=== PATIENT | female | born 1975 | race Caucasian/White ===

== ENCOUNTER 2018-10-28 20:31 | Emergency (ER) | payer SELFPAY, OTHER ==
[2018-10-28 23:54] LABS: URINE PH (Dip) POC 5.5 (5.0-8.5)
[2018-10-28 23:54] LABS: URINE BLOOD (Dip) POC Trace-intact (NEGATIVE); URINE GLUCOSE (Dip) POC Negative (NEGATIVE); URINE KETONES (Dip) POC Negative (NEGATIVE); URINE LEUKOCYTE EST (Dip) POC Negative (NEGATIVE); URINE NITRITE (Dip) POC Negative (NEGATIVE); URINE TOTAL PROTEIN POC Negative (NEGATIVE)
[2018-10-29] MEDS: LIDOCAINE/MYLANTA 40 ML BTL PO (01:10)
[2018-10-29] MEDS: PANTOPRAZOLE 40 MG INJ IV (01:10)
[2018-10-29] MEDS: SOD CHLORIDE 0.9% 1,000 ML IV (01:11)
== END 2018-10-29 03:15 | disposition home or self-care (01) ==
LOC: E/R 20:31
DX: T50.901A Poisoning by unspecified drugs, medicaments and biological substances, accidental (unintentional), initial encounter (principal); I10 Essential (primary) hypertension
CPT/HCPCS: 81003; 81025; 93005; 96361; 96374; 99284-25